=== PATIENT | female | born 2000 ===

== ENCOUNTER 2024-02-16 00:19 | Emergency (ER) | payer BC ==
[~2024-02-16] VITALS: Ht 157.5 cm; Wt 57.3 kg
[~2024-02-16 00:19] MED LIST: DOXYCYCLINE 10100 MG PO; FLAGYL 250250 MG/TAB PO
[2024-02-16 00:24] VITALS: BP 143/97; PULSE 72; TEMP 99.3
== END 2024-02-16 01:13 | disposition home or self-care (01) ==
LOC: COL.ER 00:19
DX: T81.33XA Disruption of traumatic injury wound repair, initial encounter (principal); X58.XXXA Exposure to other specified factors, initial encounter